=== PATIENT | female | born 1960 | race Two or more races ===

== ENCOUNTER 2017-04-06 10:15 | Emergency (ER) | payer OTHER ==
[2017-04-06 10:25] VITALS: RESP 18; TEMP 99
--- NOTE | 2017-04-06 11:29 | EDPHY ---
H & P Time Seen by Provider: 04/06/17 10:40 HPI/ROS: This patient reports onset of red rash over the past 2 days to her upper chest, anterior neck bilateral arms and to a lesser degree her legs. 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 She has never had this occur before and has more these garments in the past. She describes the rash as very itching and slightly burning in nature but mostly itchy. The patient is Croatian-speaking only and our tech Clemente translates for the history. She notes no other associated symptoms and she denies any exacerbating or relieving factors. The intensity of the rash is increased over the past 48 hours and her employer asked her to come in for evaluation. ROS: Constitutional: No fevers chills or other symptoms HEENT: No URI symptoms or other complaints. No c[place]za. Pulmonary: No wheeze or shortness of breath. Cardiovascular: No lightheadedness or other complaints Integumentary: As per HPI. 5 point ROS is otherwise negative. Smoking Status: Unknown if ever smoked Physical Exam: Physical Exam Vital signs are normal. General: No acute distress HEENT: Oropharynx is clear. No intraoral lesions or angioedema. Eyes: Pupils equal and react to light. Extraocular motions are intact. Lungs: Clear to auscultation bilaterally. No wheezing. No respiratory distress. Cardiac: Regular rate and rhythm with no murmur gallop or rub Skin: The patient has confluent erythema to the anterior upper chest in the anterior neck and to lesser degree to arms bilaterally. I do not appreciate any leg rash that she complains of this to the lesions are very small erythematous papules with confluent erythema between associated with areas of dry skin and minimal superficial desquamation. No petechia purpura or fluctuance. No significant warmth to touch. Neuro: Alert and oriented x3 with no sensorimotor deficits. Initial differential diagnosis: Contact dermatitis, psoriasis Constitutional: Initial Vital Signs Temperature (C) 37.2 C 04/06/17 10:23 Heart Rate 73 04/06/17 10:23 Respiratory Rate 18 04/06/17 10:23 Blood Pressure 118/72 04/06/17 10:23 O2 Sat (%) 94 04/06/17 10:23 O2 Delivery Mode Room Air Allergies/Adverse Reactions: No Known Allergies Allergy (Unverified 04/06/17 10:22) Home Medications: Medication Instructions Recorded BENADRYL 04/06/17 Famotidine [Pepcid] 40 mg PO DAILY #7 tablet 04/06/17 Triamcinolone 0.5% [Triamcinolone 1 batool TP BID #15 g 04/06/17 0.5% Cream (*)] MDM/Departure - [facility] ED Course/Re-evaluation: Findings are most consistent with a contact dermatitis with a eczema like associated rash. I suspect that a detergent or something else in the clothing elicited this allergic response. I counseled her regarding this. Will treat with triamcinolone, antihistamines an H2 blockers with plan to follow up with work comp after couple days off. - Depart Disposition: Home, Routine, Self-Care Clinical Impression: Contact dermatitis and eczema due to cause Qualifiers: Contact dermatitis type: allergic Contact dermatitis trigger: unspecified trigger Qualified Code(s): L23.9 - Allergic contact dermatitis, unspecified cause Condition: Good Instructions: Contact Dermatitis (ED) Additional Instructions: Diagnosis: Contact dermatitis due to allergic reaction plan: Triamcinolone steroid cream twice a day for 7-10 days Benadryl or other antihistamine for itching Pepcid 40 mg a day in addition (Also works as an antihistamine) no work for the next 2 days. You may have an allergy to the detergent used in the work clothes. Call the work comp clinic affiliated with your area of work to arrange follow- up appointment for a recheck in 2 days. Return for any significant worsening despite treatment plan Stand Alone Forms: Work Excuse Prescriptions: Famotidine [Pepcid] 40 mg PO DAILY #7 tablet Triamcinolone 0.5% [Triamcinolone 0.5% Cream (*)] 1 batool TP BID #15 g Referrals: Felix Chen DO [Primary Care Provider] - As per Instructions Print Language: Croatian
[2017-04-06 11:34] VITALS: BP 115/62; PULSE 74; O2SAT 97
== END 2017-04-06 11:33 | disposition home or self-care (01) ==
LOC: CED 10:15
DX: L23.9 Allergic contact dermatitis, unspecified cause (principal)

== ENCOUNTER → 2017-08-19 | Outpatient (CLI) | payer OTHER | LOC: CIMAGING 07:25 | PROVIDERS: ATTEND Physician Assistant | DX: Z12.31 Encounter for screening mammogram for malignant neoplasm of breast (principal) | CPT/HCPCS: G0202 ==

== ENCOUNTER → 2018-12-02 | Outpatient (CLI) | payer OTHER | LOC: CIMAGING 14:38 | PROVIDERS: ATTEND Family Medicine | DX: Z12.31 Encounter for screening mammogram for malignant neoplasm of breast (principal) ==

== ENCOUNTER → 2019-01-23 | Outpatient (CLI) | payer BC, OTHER | LOC: CIMAGING 14:12 ==